=== PATIENT | female | born 1970 | race Hispanic/Latino ===

== ENCOUNTER 2021-07-08 03:53 | Emergency (ER) | payer SELFPAY | END 2021-07-08 04:14 | LOC: ERS 03:53 | DX: Z20.89 Contact with and (suspected) exposure to other communicable diseases (principal); I10 Essential (primary) hypertension | CPT/HCPCS: 99283 ==

== ENCOUNTER 2025-07-13 11:43 | Emergency (ER) | payer OTHER, SELFPAY ==
[2025-07-13] MEDS ORDERED: Ibuprofen 200 MG TAB ONE (12:01)
[2025-07-13] MEDS ORDERED: Lidocaine 1% PF 5 ML VIAL ONE (12:47)
== END 2025-07-13 14:07 | disposition home or self-care (01) ==
LOC: ERS 11:43
DX: S93.124A Dislocation of metatarsophalangeal joint of right lesser toe(s), initial encounter (principal); S92.511A Displaced fracture of proximal phalanx of right lesser toe(s), initial encounter for closed fracture; I10 Essential (primary) hypertension; W01.0XXA Fall on same level from slipping, tripping and stumbling without subsequent striking against object, initial encounter
CPT/HCPCS: 99283